=== PATIENT | female | born 1995 | race Caucasian/White ===

== ENCOUNTER 2020-08-23 09:14 | Emergency (ER) | payer SELFPAY ==
[~2020-08-23] VITALS: Ht 170.2 cm; Wt 68.0 kg
--- NOTE | 2020-08-23 09:14 | NUR ---
Patient BIBA BLS accompanied by [place] [employer], transferred to bed 6. RN evaluating patient at bedside.
[2020-08-23 09:16] VITALS: BP 120/75
--- NOTE | 2020-08-23 09:26 | NUR ---
Dr. Preciado is evaluating the patient at bedside.
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
--- NOTE | 2020-08-23 09:35 | NUR ---
PT AMBULATED TO RESTROOM WITH STEADY GAIT
--- NOTE | 2020-08-23 10:24 | NUR ---
Patient taken to CT scan via gurney by dorian, escorted by Bhakti LORENZO.
[2020-08-23 11:05] VITALS: BP 120/79
--- NOTE | 2020-08-23 11:05 | NUR ---
DISCHARGE INSTRUCTIONS ALONG WITH COPIES OF X-RAY/CT SCAN REPORT GIVEN TO OFFICER JOÃO. PATIENT MEDICALLY CLEARED AND RELEASED IN CUSTODY IN STABLE CONDITION. ORIGINAL PRE-BOOK FORM WITH A COPY OF FORM GIVEN TO OFFICER JOÃO. PT DISCHARGED FROM FACILITY IN STABLE CONDITION. PT LEFT FACILITY IN CUSTODY OF REBEKA LORENZO. OFFICER JOÃO SPEAKING WITH PATIENT'S FAMILY IN [facility].
== END 2020-08-23 11:05 ==
LOC: MED 09:14
DX: S09.90XA Unspecified injury of head, initial encounter (principal); R46.2 Strange and inexplicable behavior; V89.2XXA Person injured in unspecified motor-vehicle accident, traffic, initial encounter; Y93.89 Activity, other specified; Y92.89 Other specified places as the place of occurrence of the external cause; Y99.8 Other external cause status
CPT/HCPCS: 70450; 71045; 81002; 81025; 99284; Q0092